=== PATIENT | female | born 1950 | race Caucasian/White ===

== ENCOUNTER 2018-03-08 06:42 | Inpatient (IN) | payer MEDICARE ==
--- NOTE | 2018-02-28 14:32 | HP ---
Amended report to enter cosigning physician. HISTORY AND PHYSICAL: DATE OF ADMISSION/SURGERY: 03/08/18 DATE OF OFFICE VISIT: 02/28/18 SURGEON: Chloe Flood MD* (dictated by NIRU Solitario). PROCEDURE: Left total hip arthroplasty. CHIEF COMPLAINT: Left hip pain. HISTORY OF PRESENT ILLNESS: Ms. Fish is a 67-year-old female with complaints of left hip pain, secondary to advanced osteoarthritis. She has failed conservative management and elected to proceed with a left total hip arthroplasty, which is scheduled for 03/08/[address] Flood. PAST MEDICAL HISTORY: Denies. PAST SURGICAL HISTORY: Hysterectomy, bladder sling, and . CURRENT MEDICATIONS: 1. Vitamin C. 2. Atorvastatin calcium 20 mg q.h.s. 3. Tylenol as needed. 4. Glucosamine and chondroitin daily. ALLERGIES: None. FAMILY HISTORY: Coronary artery disease, hypertension, breast cancer, diabetes , and stroke. SOCIAL HISTORY: She is a 67-year-old female. She lives with her . She smokes 1 cigarette a day. She denies use of drugs or alcohol. REVIEW OF SYSTEMS: A complete 14-point review of systems is reviewed with the patient and it was all negative or noncontributory. She denies any history of DVT, PE, hepatitis, HIV, or anesthesia problems. PHYSICAL EXAMINATION GENERAL: She is well developed, well nourished, in no acute distress. VITAL SIGNS: She stands 5 feet 2 inches tall, weighs 178 pounds, blood pressure is 190/106, her heart rate is . HEENT: Normocephalic, atraumatic. NECK: Supple. No palpable lymph nodes. PULMONARY: Lungs are clear to auscultation bilaterally. CARDIO: Regular rate and rhythm. Strong S1, S2. ABDOMEN: Soft, nontender, nondistended. NEUROLOGIC: She is alert and oriented x3. Cranial nerves II through XII are intact. MUSCULOSKELETAL: Left lower extremity: The skin is intact. There are no open wounds or abrasions. She has decreased internal and external rotation of her left hip. She walks with an antalgic-type gait favoring her left hip. She has 2+ dorsalis pedis pulses, intact sensation. Her lower extremity muscle group strengths were intact at 5/5. ASSESSMENT AND PLAN: Ms. Fish is a 67-year-old female with left hip pain secondary to advanced osteoarthritis. She has failed conservative management and elected to proceed with the left total hip arthroplasty, which is scheduled for 03/08/[address] Flood discussed the risks and benefits of surgery at today's visit and all of her questions were answered. She will follow up with Dr. Flood in 2 weeks after the surgery. NIRU SOLITARIO [id number]/CPS #: [id number] MTDD
[~2018-03-08 06:42] MED LIST: Buffered Lidocaine 0.9% SYRIN* 5 ML/SYR SYRINGE INTRADERM ONE; Dexamethasone IV* 4 MG/ML 1 ML (4 MG) IV SLOW PU ONE; Famotidine TAB* 20 MG PO ONE
[2018-03-08] MEDS ORDERED: ceFAZolin 2 GM PREMIX (*) 2 GM/50 ML BAG IVPB ONE (06:58)
[2018-03-08] MEDS ORDERED: Dexamethasone IV* 4 MG/ML 5 ML VIAL (20 MG) ONE (06:58)
[2018-03-08] MEDS ORDERED: Famotidine TAB* 20 MG ONE (06:58)
[2018-03-08] MEDS ORDERED: Dexamethasone IV* 4 MG/ML 1 ML (4 MG) ONE (06:59)
[2018-03-08] MEDS ORDERED: Midazolam* 1 MG/ML 5 ML VIAL (5 MG) ONE (08:40)
[2018-03-08] MEDS ORDERED: Scopolamine 1.5 mg* PATCH ONE (08:45)
[2018-03-08] MEDS ORDERED: Morphine PF AMP (0.5MG/ML)* 5 MG/10 ML AMP ONE (08:46)
[2018-03-08] MEDS ORDERED: Propofol* 10 MG/ML 20 ML BTL IV PUSH ONE ×2 (08:54→11:20)
[2018-03-08] MEDS ORDERED: Phenylephrine INJ* 10 MG/ML 1 ML VIAL (10 MG) ONE (09:32)
[2018-03-08] MEDS ORDERED: Bupivacaine 0.5% PF 10 ML VIAL INJ ONE (10:17)
[2018-03-08] MEDS ORDERED: Ondansetron INJ* 2 MG/ML VIAL ONE (10:18)
[2018-03-08] MEDS ORDERED: Magnesium Hydroxide LIQ* 30 ML UDC PO PRN (11:19)
[2018-03-08] MEDS ORDERED: diPHENhydraMINE IV* 50 MG/ML 1 ml VIAL (BENADRYL) IV PRN (11:19)
[2018-03-08] MEDS ORDERED: Cyclobenzaprine TAB* 10 MG PO PRN (11:19)
[2018-03-08] MEDS ORDERED: Morphine VIAL* 4 MG/ML VIAL (1 ml vial) IV PRN (11:19)
[2018-03-08] MEDS ORDERED: Bisacodyl SUPP* 10 MG SUPP PR PRN (11:19)
[2018-03-08] MEDS ORDERED: oxyCODONE TAB* 5 MG TAB PO PRN (11:19)
[2018-03-08] MEDS ORDERED: Ketorolac INJ* 30 MG/ML 1 ML VIAL IV PRN (11:28)
[2018-03-08] MEDS ORDERED: Naloxone* 0.4 MG/ML 1 ML VIAL IV PRN ×2 (11:28→11:38)
[2018-03-08] MEDS ORDERED: DiMENhydriNATE IV* 50 MG/ML VIAL IV PUSH PRN (11:28)
[2018-03-08] MEDS ORDERED: oxyCODONE/Acetamin 5/325 MG* TAB PO PRN (11:38)
[2018-03-08] MEDS ORDERED: Ondansetron INJ* 2 MG/ML VIAL IV PRN (11:38)
[2018-03-08] MEDS ORDERED: Ketorolac INJ* 30 MG/ML 1 ML VIAL ONE (11:46)
--- NOTE | 2018-03-08 11:48 | RAD ---
INDICATION: LEFT hip replacement COMPARISON: February 12, 2018 TECHNIQUE: Crosstable RIGHT lateral decubitus AP lower pelvis and proximal femurs 0951 hours FINDINGS: LEFT acetabular component in place. LEFT femur test fit reamer device in place. No fracture evident. IMPRESSION: Interoperative control films.
--- NOTE | 2018-03-08 13:51 | CONSULT ---
Subjective Date of Service: 03/08/18 Interval History: 67 yo female PMH HLD, left hip OA, family Hx of CAD, current 1 cigarette smoker a day for last 40 years who is now s/o left total hip replacement. In PACU postoperatively there was concern for irregular HR so medicine service consulted. She regularly exercises and climbs stairs without exertional dyspnea. She denies chest pain, shortness of breath, chest pressure, palpitations. Family History: Findings - father with CVA, MGF IL age 61, PGF [place] age 47, Paternal Uncle [place] age 49 Social History: Findings - 1 cigarette day smoker for 50 Past Medical History: Findings - HLD, smoker, OA Review of Systems - Measurements Intake and Output: Intake and Output Last 24 Hours 03/06/18 03/07/18 03/08/18 03/09/18 06:59 06:59 06:59 06:59 Intake Total 1750 Output Total 550 Balance 1200 Weight 51.256 kg Intake: IV Fluids 1750 LR 1700 NS 50ML, Cefazolin 2G 50 Output: Ram 550 - Review of Systems Constitutional Symptoms: Negative: Fever Pulmonary: Positive: Normal Cardiology: Positive: Normal Negative: Chest Pain, Shortness of Breath, Palpitations Gastroenterology: Positive: Normal Musculoskeletal: Positive: Joint Pain Neurology: Positive: Normal Objective Active Medications: Acetaminophen (Tylenol Tab*) 650 mg PO Q4H PRN PRN Reason: PAIN OR TEMPERATURE Bisacodyl (Dulcolax Supp*) 10 mg IN DAILY PRN PRN Reason: constipation Cyclobenzaprine HCl (Flexeril Tab*) 5 mg PO TID PRN PRN Reason: SPASMS Dexamethasone Sodium Phosphate (Decadron Iv*) 8 mg IV SLOW PU ONCE ONE Stop: 03/08/18 06:01 Last Admin: 03/08/18 07:28 Dose: 8 mg Dimenhydrinate (Dramamine Iv*) 25 mg IV PUSH ONCE PRN PRN Reason: NAUSEA/VOMITING Diphenhydramine HCl (Benadryl Iv*) 25 mg IV Q6H PRN PRN Reason: itching Docusate Sodium (Colace Cap*) 100 mg PO BID KERA Enoxaparin Sodium (Lovenox(*)) 30 mg SUBCUT Q24H KERA Famotidine (Pepcid Tab*) 20 mg PO ONCE ONE Stop: 03/08/18 06:01 Last Admin: 03/08/18 07:28 Dose: 20 mg Lactated Ringer's (Lactated Ringers 1000 Ml Bag*) 1,000 mls @ 125 mls/hr IV PER RATE [facility] Last Admin: 03/08/18 07:28 Dose: 125 mls/hr Cefazolin Sodium/Dextrose (Kefzol 1 Gm In Dextrose Duplex (*)) 1 gm in 50 mls @ 200 mls/hr IVPB Q8H [facility] Stop: 03/09/18 04:14 Lactated Ringer's (Lactated Ringers 1000 Ml Bag*) 1,000 mls @ 100 mls/hr IV PER [facility] Ketorolac Tromethamine (Toradol Inj*) 15 mg IV Q6H PRN PRN Reason: PAIN Stop: 03/09/18 11:40 Lidocaine/Sodium Bicarbonate (Buffered Lidocaine 0.9% Syrin*) 0.2 ml INTRADERM ONCE ONE Stop: 03/07/18 15:03 Magnesium Hydroxide (Milk Of Magnesia Liq*) 30 ml PO BID [facility] Magnesium Hydroxide (Milk Of Magnesia Liq*) 30 ml PO Q6H PRN PRN Reason: constipation Morphine Sulfate (Morphine Inj (Syringe)*) 2 mg IV Q2H PRN PRN Reason: PAIN Multivitamins (Theragran Tab*) 1 tab PO DAILY [facility] Naloxone HCl (Narcan*) 0.08 mg IV Q2M PRN PRN Reason: severe induced resp depression Stop: 03/09/18 11:27 Naloxone HCl (Narcan*) 0.08 mg IV Q2M PRN PRN Reason: severe induced resp depression Stop: 03/09/18 11:37 Ondansetron HCl (Zofran Tab*) 4 mg PO Q6H PRN PRN Reason: NAUSEA Ondansetron HCl (Zofran Inj*) 4 mg IV Q6H PRN PRN Reason: Nausea/Vomiting Oxycodone HCl (Roxycodone Tab*) 10 mg PO Q4H PRN PRN Reason: PAIN - SEVERE Oxycodone/Acetaminophen (Percocet 5/325 Tab*) 2 tab PO Q4H PRN PRN Reason: PAIN Oxycodone/Acetaminophen (Percocet 5/325 Tab*) 1 tab PO Q4H PRN PRN Reason: PAIN - MODERATE Oxycodone/Acetaminophen (Percocet 5/325 Tab*) 1 tab PO Q4H PRN PRN Reason: Moderate Pain Warfarin Sodium (Coumadin Tab(*)) 6 mg PO ONCE@1700 ONE PRN Reason: Protocol Stop: 03/08/18 17:01 Vital Signs - 8 hr 03/08/18 03/08/18 03/08/18 07:10 07:22 11:53 Temperature 98.2 F Pulse Rate 84 82 77 Respiratory 18 Rate Blood Pressure 155/92 155/92 (mmHg) O2 Sat by Pulse 95 96 94 Oximetry 03/08/18 03/08/18 03/08/18 11:54 11:55 12:00 Temperature 97.5 F Pulse Rate 84 74 81 Respiratory 11 19 Rate Blood Pressure 99/61 109/51 100/52 (mmHg) O2 Sat by Pulse 93 90 90 Oximetry 03/08/18 03/08/18 03/08/18 12:05 12:10 12:13 Temperature Pulse Rate 74 65 60 Respiratory 15 16 18 Rate Blood Pressure 100/54 80/44 96/39 (mmHg) O2 Sat by Pulse 96 93 98 Oximetry 03/08/18 03/08/18 03/08/18 12:15 12:30 12:45 Temperature Pulse Rate 78 61 49 Respiratory 14 13 20 Rate Blood Pressure 99/56 102/47 111/48 (mmHg) O2 Sat by Pulse 95 97 98 Oximetry 03/08/18 03/08/18 03/08/18 13:00 13:15 13:30 Temperature 97.5 F Pulse Rate 59 52 57 Respiratory 17 15 13 Rate Blood Pressure 102/51 94/46 98/48 (mmHg) O2 Sat by Pulse 96 96 94 Oximetry Oxygen Devices in Use Now: Nasal Cannula Appearance: NAD, lying in PACU bed. Ears/Nose/Mouth/Throat: NL Teeth, Lips, Gums Neck: NL Appearance and Movements; NL JVP Respiratory: Symmetrical Chest Expansion and Respiratory Effort, Clear to Auscultation - anteriorly Cardiovascular: NL Sounds; No Murmurs; No JVD, RRR Abdominal: NL Sounds; No Tenderness; No Distention, No Hepatosplenomegaly Extremities: No Edema, - - left hip bandage Skin: No Rash or Ulcers Neurological: Alert and Oriented x 3, NL Sensation Nutrition: Taking PO's Assessment/Plan - Billing Plan By Medical Problem: 1. Consulted for concern for irregular HR. Telemetry examined patient is in normal sinus rhythm with occasional sinus bradycardia to 50s. Tele print out of concern also normal sinus rhythm with some modest R-R interval variabilty. This can be caused by variations in vagal tone (for instance associated with post operative pain or discomfort). This is not an arrythmia. Pt can be transferred to [facility]. Good functional exercise tolerance. 2. OA s/p left total hip. pain control per ortho. 3. recommend smoking cessation. VTE PPX: per orthopedics, likely lovenox Diet: heart healthy Code Status: FULL Admission Status and Rationale: post op left total hip
[2018-03-08] MEDS ORDERED: Heparin VIAL(*) 5000 UNITS/ML VIAL (FIVE THOUSAND) SUBCUT SCH (14:00)
--- NOTE | 2018-03-08 14:49 | RAD ---
Indication: Post LEFT total hip arthroplasty. Comparison: February 12, 2018 Technique: Portable low AP pelvis, AP and crosstable lateral views LEFT hip. Report: LEFT total hip prosthesis in place with normal alignment. No periprosthetic fracture evident. Overlying soft tissue edema and subcutaneous emphysema. The contralateral hip is remarkable for osteoarthritis with moderately severe axial joint space narrowing. IMPRESSION: Unremarkable immediate postop appearance following LEFT total hip replacement.
[2018-03-08] MEDS: ceFAZolin 1 GM in Dextrose (*) 1 GM/50 ML BAG IVPB SCH (16:52)
[2018-03-08] MEDS ORDERED: Warfarin TAB(*) 6 MG PO ONE (17:00)
[2018-03-08] MEDS: Ketorolac INJ* 30 MG/ML 1 ML VIAL IV PRN (22:06)
[2018-03-08] MEDS: Docusate CAP* 100 MG PO SCH (22:08)
[2018-03-08] MEDS: Magnesium Hydroxide LIQ* 30 ML UDC PO SCH (22:08)
[2018-03-09] MEDS: ceFAZolin 1 GM in Dextrose (*) 1 GM/50 ML BAG IVPB SCH ×2 (01:05→09:16)
[2018-03-09] MEDS ORDERED: Ondansetron TAB* 4 MG PO PRN (01:13)
[2018-03-09] MEDS ORDERED: oxyCODONE/Acetamin 5/325 MG* TAB PO PRN ×2 (01:13)
[2018-03-09] MEDS: Ketorolac INJ* 30 MG/ML 1 ML VIAL IV PRN (04:58)
[2018-03-09 06:17] LABS: Hematocrit 26 % (35-47); Hemoglobin 8.7 g/dl (12.0-16.0); Mean Platelet Volume 8.5 um3 (7.4-10.4); Platelet Count 113 10^3/ul (150-450)
[2018-03-09 06:21] LABS: INR 1.06 (0.77-1.02)
[2018-03-09 06:35] LABS: EGFR Non-African American 110.9 (>60)
--- NOTE | 2018-03-09 08:30 | PN ---
Progress Note - Progress Note Date of Service: 03/09/18 SOAP: Subjective: 67 y/o female s/p L JHOAN by Dr. Flood 03/08. VSS, afebrile overnight. Patient feeling well, pain controlled with tylenol. No complaints, questions, in good spirits. LIkley D/C home monday. Objective: General- Well appearing, NAD, AO Sitting in chair comfortably MSK- LLE- DF/PF = b/l, PT 2+, negative homans sign, no induration, drainage noted. LLE non-tender to palpation. Vital Signs Temp 98.4 F 03/09/18 04:39 Pulse 82 03/09/18 04:39 Resp 18 03/09/18 06:39 BP 118/45 03/09/18 04:39 Pulse Ox 96 03/09/18 04:39 Intake & Output 03/08/18 03/09/18 03/09/18 18:59 06:59 18:59 Intake Total 1750 1960 Output Total 550 1875 Balance 1200 85 Weight 51.256 kg Intake: IV Fluids 1750 980 LR 1700 980 NS 50ML, Cefazolin 2G 50 IVPB 105 LR 105 Oral 875 Output: Ram 550 1875 Assessment: Stable 67 y/o female s/p L JHOAN by Dr. Flood 03/08 Plan: - DVT prophylaxis- lovenox, coumadin 5 mg tonight, INR subtheraputic - Continue PT/ OT - Follow up with Dr. Flood within 10-14 days - H&H - Stable - post-op IV ABX - Completed - LIkely D/C monday as patient will be living alone until that time. Laboratory Results - last 24 hr 03/09/18 03/09/18 03/09/18 06:01 06:01 06:01 Hgb 8.7 L Hct 26 L Plt Count 113 L MPV 8.5 INR (Anticoag Therapy) 1.06 H Sodium 139 Potassium 4.1 Chloride 107 Carbon Dioxide 30 Anion Gap 2 BUN 17 Creatinine 0.55 Est GFR ( Amer) 142.7 Est GFR (Non-Af Amer) 110.9 BUN/Creatinine Ratio 30.9 H Glucose 111 H Calcium 8.5 L
[2018-03-09] MEDS: Acetaminophen TAB* 325 MG PO PRN ×4 (09:15→23:26)
[2018-03-09] MEDS: Vitamin THERAPEUTIC TAB PO SCH (09:15)
[2018-03-09] MEDS: Docusate CAP* 100 MG PO SCH ×2 (09:15→21:02)
[2018-03-09] MEDS: Magnesium Hydroxide LIQ* 30 ML UDC PO SCH ×2 (09:16→21:02)
--- NOTE | 2018-03-09 11:58 | OP ---
OPERATIVE REPORT: DATE OF OPERATION: 03/08/18 DATE OF : 54 SURGEON: Chloe Flood MD INSTITUTION DIRECTOR: NIRU Bardales Ms. Khan did help throughout the procedure with preparation of the leg, wound retraction, manipulation of the hip, and wound closure. ANESTHESIOLOGIST: Mauro Fajardo MD ANESTHESIA: Spinal. PRE-OP DIAGNOSIS: Severe end-stage degenerative osteoarthritis of the left hip joint. POST-OP DIAGNOSES: Severe end-stage degenerative osteoarthritis of the left hip joint with extensive subchondral cyst formation in the acetabulum and significant osteopenia. OPERATIVE PROCEDURE: Left total hip arthroplasty with acetabular cyst bone grafting with femoral head autograft. INDICATIONS: Ms. Fish is a 67-year-old female, who has had years of left hip pain. She failed conservative treatment with antiinflammatories, home exercise program, and ambulatory assistive devices, and homeopathic therapy. Radiographs showed extreme deformation of the femoral head with obliteration of the joint space and subchondral cyst formation. She elected to have left total hip arthroplasty due to continued pain and decreased quality of life. Informed consent was obtained from the patient. She understood the risks of surgery included, but were not limited to, bleeding, infection, damage to nearby structures, continued pain, need for further surgery, intraoperative fracture, nerve palsy, hardware failure or loosening, dislocation, leg length discrepancy , stroke, heart attack, blood clot, and . She wished to proceed. HARDWARE USED: This is a Tritanium cluster hole shell 50D, a single 20-mm cancellous bone screw was used. For the polyethylene, a Trident X3 10-degree polyethylene insert, 32D. For the stem, an Accolade TMZF size 3 with a 132- degree neck. For the head, a Biolox delta ceramic V40 femoral head 32 -4. COMPLICATIONS: None. ESTIMATED BLOOD LOSS: 300 cc. SPECIMEN: Femoral head and acetabular reaming sent to Pathology. INTRAOPERATIVE FINDINGS: Intraoperatively, the patient had severe end-stage degeneration of the hip joint with bony deformation. Femoral head was slightly deformed with bone loss. Acetabulum had extensive subchondral cyst formation and osteopenia due to chronic wear. DESCRIPTION OF PROCEDURE: Ms. Fish was identified in the preanesthesia unit. Her left lower extremity was marked as the correct operative side. Informed consent was signed and placed in the chart. The patient was taken to the operating room and placed under spinal anesthesia. A Ram catheter was placed. The patient was placed in the right lateral decubitus position on the peg board. All bony prominences were well padded. The left lower extremity was prepped and draped in the usual sterile fashion. Preop time-out was made to correctly identify the patient's side and site. Appropriate perioperative antibiotics were given within 1 hour of incision. A 12-cm posterior hip incision was made with a 10 blade, carried down to the lateral fascial layer. The lateral fascial layer was then incised in line with the skin incision. Charnley retractor was placed. The piriformis and conjoint tendons were identified and elevated off the posterolateral femur using electrocautery. These were tagged with #5 Ethibonds. Next, the capsule was opened using electrocautery and also tagged with #5 Ethibond. The hip was carefully dislocated. Femoral head had extreme deformation. Lesser troch to center of the femoral head was estimated at 55 mm. Oscillating saw was used to make the appropriate femoral neck cut. The head was removed. Autograft was removed from the femoral head. The femur was carefully retracted anteriorly. After appropriate placement of retractors, the acetabulum was easily visualized. Any remaining labrum was carefully removed from the acetabular rim. The acetabulum was sequentially reamed up to a size 49. Bleeding subchondral bone bed was obtained. There was a marked amount of subchondral cyst formation and a severe lack of bone stalk. This bone was osteoporotic and full of subchondral cysts from chronic wear. Femoral head autograft was used to pack the subchondral cyst region in the superior to anterior weightbearing the cystic material was removed. A 49 trial was deemed to have satisfactory stability. Final implant used was a Tritanium 50D cluster hole shell. This was impacted into the acetabulum without difficulty. Stability was satisfactory. With the cluster holes, only one screw was able to be obtained in the superior posterior quadrant. This was length 20-mm screw. Satisfactory purchase was obtained. The liner chosen was a Trident X3 10-degree polyethylene insert 32D. This was impacted into the acetabulum without difficulty. Stability of the liner was checked and rechecked and noted to be stable. Attention was turned back to the preparation of the proximal femur. A canal finder was used to enter the proximal femur. Femur was sequentially broached up to a size 3. A 132-neck trial was placed with a 32 -4 head trial. Lesser troch to center of the femoral head measured 56 mm. The hip was reduced and taken through range of motion. The hip was stable in all positions. Satisfactory soft tissue tension and appropriate leg lengths. The hip was carefully dislocated. All trials were removed. The final implant chosen was an Accolade TMZF size 3 with a 132-degree neck. This was impacted into the femoral canal without difficulty. Satisfactory stability and anteversion were obtained. A 32 -4 ceramic V40 Biolox delta femoral head was chosen. This was impacted on to the femoral neck. The hip was reduced and taken through a range of motion. The hip was stable in all positions. The hip was copiously irrigated with sterile saline. Previously tagged capsule and tendons were reapproximated to the posterolateral femur through 2 trochanteric drill holes. The lateral fascial layer was closed using interrupted #1 Vicryls. The rest of the incision was closed in a layered fashion using 0 and 2-0 Vicryls. The skin was closed using running 3-0 Monocryl and Dermabond. Sterile Adaptic, 4x4s, paper tape were used to cover the incision. The patient's anesthesia was reversed without difficulty. She was taken to the PACU in stable condition. Due to the patient's severe osteopenia and acetabular bone loss, I will make her 25% toe-touch weightbearing for the next month to 6 weeks. She will have strict posterior hip precautions and weightbearing as tolerated with DVT prophylaxis will be Coumadin with Lovenox bridge. [id number]/CPS #: [id number]
[2018-03-09] MEDS: Enoxaparin(*) 30 MG/0.3 ML SYR SUBCUT SCH (12:27)
[2018-03-09] MEDS ORDERED: NS 0.9% 500 ML* 500 ML IV PRN (13:51)
[2018-03-09] MEDS ORDERED: Warfarin TAB(*) 5 MG PO ONE (17:00)
[2018-03-09] MEDS: Atorvastatin* 20 MG TAB PO SCH (21:02)
[2018-03-10 05:47] LABS: Hematocrit 28 % (35-47); Hemoglobin 9.3 g/dl (12.0-16.0); Mean Platelet Volume 8.9 um3 (7.4-10.4); Platelet Count 131 10^3/ul (150-450)
[2018-03-10] MEDS: Acetaminophen TAB* 325 MG PO PRN ×5 (06:07→23:58)
[2018-03-10 06:32] LABS: INR 2.42 (0.77-1.02)
[2018-03-10] MEDS: Vitamin THERAPEUTIC TAB PO SCH (08:37)
[2018-03-10] MEDS: Magnesium Hydroxide LIQ* 30 ML UDC PO SCH ×2 (08:37→21:58)
[2018-03-10] MEDS: Docusate CAP* 100 MG PO SCH ×2 (08:37→21:58)
--- NOTE | 2018-03-10 11:42 | PN ---
Progress Note - Progress Note Date of Service: 03/10/18 SOAP: Subjective: 67 y/o female s/p L JHOAN by Dr. Flood 03/08. Some low blood pressures yesterday, patient asymptomatic at time. Resolved overnight. Afebrile overnight. Patient feeling well, pain controlled with tylenol. No complaints, questions, in good spirits. Likely D/C home Monday as when family in town to care for her. Objective: Vital Signs Temp 97.9 F 03/10/18 11:16 Pulse 77 03/10/18 11:16 Resp 14 03/10/18 11:16 BP 106/46 03/10/18 11:16 Pulse Ox 98 03/10/18 11:16 Intake & Output 03/09/18 03/10/18 03/10/18 18:59 06:59 18:59 Intake Total 1680 200 500 Output Total 1400 2800 950 Balance 280 -2600 -450 Intake: IV Fluids 1080 ABX - CEFAZOLIN 100 LR 980 Oral 600 200 500 Output: Urine 1400 2800 950 Other: # Bowel Movements 1 Estimated Stool Amount Large Laboratory Results - last 24 hr 03/10/18 03/10/18 05:21 05:21 Hgb 9.3 L Hct 28 L Plt Count 131 L MPV 8.9 INR (Anticoag Therapy) 2.42 H General- Well appearing, NAD, AO Sitting in chair comfortably, eating breakfast. MSK- LLE- Dressing intact clean, dry. DF/PF = b/l, PT 2+, calf soft. Sensation intact to light touch distally. Assessment: Stable 67 y/o female s/p L JHOAN by Dr. Flood 03/08 Plan: - DVT prophylaxis- lovenox, coumadin. Will hold coumadin tonight as INR 2.42. Recheck tomorrow. - Continue PT/ OT - Follow up with Dr. Flood within 10-14 days - H&H - Stable - post-op IV ABX - Completed - Likely D/C monday as patient will be living alone until that time.
[2018-03-10] MEDS: Enoxaparin(*) 30 MG/0.3 ML SYR SUBCUT SCH (13:42)
[2018-03-10] MEDS: Atorvastatin* 20 MG TAB PO SCH (21:57)
[2018-03-11] MEDS: Acetaminophen TAB* 325 MG PO PRN ×2 (04:12→08:07)
[2018-03-11 06:01] LABS: Hematocrit 29 % (35-47); Hemoglobin 9.9 g/dl (12.0-16.0); Mean Platelet Volume 8.8 um3 (7.4-10.4); Platelet Count 148 10^3/ul (150-450)
[2018-03-11 06:15] LABS: INR 1.93 (0.77-1.02)
[2018-03-11] MEDS: Magnesium Hydroxide LIQ* 30 ML UDC PO SCH (08:03)
[2018-03-11] MEDS: Vitamin THERAPEUTIC TAB PO SCH (08:07)
[2018-03-11] MEDS: Docusate CAP* 100 MG PO SCH (08:09)
[2018-03-11] MEDS ORDERED: Scopolamine PATCH Remove* 1 NOTE MISC PATCH OFF ONE (09:00)
[2018-03-11 11:34] VITALS: BP 123/67
--- NOTE | 2018-03-11 11:42 | PN ---
Progress Note - Progress Note Date of Service: 03/11/18 SOAP: Subjective: 67 y/o female s/p L JHOAN by Dr. Flood 03/08. Some low blood pressures yesterday, patient asymptomatic at time. Resolved overnight. Afebrile overnight. Patient feeling well, pain controlled with tylenol. No complaints, questions, in good spirits. Anxious for discharge, planed for this morning. Objective: Vital Signs Temp 97.9 F 03/11/18 08:13 Pulse 89 03/11/18 08:13 Resp 16 03/11/18 08:13 BP 123/67 03/11/18 08:13 Pulse Ox 98 03/11/18 08:13 Intake & Output 03/10/18 03/11/18 03/11/18 18:59 06:59 18:59 Intake Total 1100 2290 Output Total 1100 1400 300 Balance 0 890 -300 Intake: Oral 1100 2290 Output: Urine 1100 1400 300 Other: Estimated Void Medium # Bowel Movements 1 0 Estimated Stool Amount Medium # Voids 1 1 Laboratory Results - last 24 hr 03/11/18 03/11/18 05:31 05:31 Hgb 9.9 L Hct 29 L Plt Count 148 L MPV 8.8 INR (Anticoag Therapy) 1.93 H General- Well appearing, NAD, AO Sitting in chair comfortably, eating breakfast. MSK- LLE- Incision clean, dry, no erythema, warmth, drainage. DF/PF = b/l, PT 2+ , calf soft. Sensation intact to light touch distally. Assessment: Stable 67 y/o female s/p L JHOAN by Dr. Flood 03/08 Plan: - DVT prophylaxis- D/C on coumadin. - Follow up with Dr. Flood within 10-14 days - post-op IV ABX - Completed - D/C today.
--- NOTE | 2018-03-14 20:47 | DS ---
DISCHARGE SUMMARY: DATE OF ADMISSION: 03/08/18 DATE OF DISCHARGE: 03/11/18 ATTENDING PROVIDER: Dr. Flood * (DICTATED BY NIRU VARMA) CHIEF COMPLAINT: Left hip osteoarthritis. DISCHARGE DIAGNOSIS: Status post left total hip arthroplasty. PROCEDURE: Left total hip arthroplasty. CONSULTATIONS: 1. Physical therapy. 2. Occupational therapy. 3. Medicine. BRIEF HISTORY: Ms. Fish is a 67-year-old female who had advanced osteoarthritis in her left hip, who failed conservative management and elected to proceed with a left total hip arthroplasty on 03/08/[address] Flood. HOSPITAL COURSE: Ms. Fish was admitted to [facility] where she underwent a left total hip arthroplasty. Postoperatively, she had some abnormalities in her EKG and was determined by hospitalist service to be just RR variation, so she was able to recover on the short stay surgical unit. On postoperative day #1, her Ram catheter was removed and she was able to urinate on her own. She was advanced to regular diet without difficulty and pain was controlled with Tylenol after the first day and she was able to restart her home medications. Her labs and vital signs remained stable. She was able to weight bear as tolerated on the left lower extremity. She was advanced appropriately with physical therapy and occupational therapy. Her DVT prophylaxis was managed with Lovenox and Coumadin until she reached therapeutic INR. By postoperative day #3, she was orthopedically and medically stable to discharge home with services. PHYSICAL EXAM: Ms. Fish is well nourished, well developed, who is in no acute distress. She is sitting comfortably in a chair eating breakfast. She is alert and oriented x3. Her vital signs on the day of discharge were temperature of 97.9, pulse of 89, respirations 16, blood pressure 123/67, pulse ox 98%. On the left lower extremity, her incision was clean, dry with no erythema, warmth, or drainage with sutures intact. Dorsiflexion and plantar flexion were equal bilaterally. She has 2+ DP and PT pulses. Calf is soft. Sensation is grossly intact to light touch distally. LABORATORY DATA: On the day of discharge, hemoglobin of 9.9, hematocrit of 29, INR of 1.93. RADIOGRAPHS: Postoperative radiographs of the left hip show left total hip arthroplasty with satisfactory prosthetic placement. No acute bony abnormalities. DISCHARGE MEDICATIONS: 1. Acetaminophen 500 two tablets q.6 hours p.r.n. pain. 2. Ascorbic acid 500 mg daily. 3. Atorvastatin 20 mg daily. 4. Naproxen 220 three tablets p.o. b.i.d. as needed for pain. 5. Fish oil 1000 mg daily. 6. Vitamin D 5000 international units daily. 7. Coumadin 2 mg, take as directed. CONDITION ON DISCHARGE: Stable. DISCHARGE INSTRUCTIONS: Ms. Fish is a 67-year-old female who is postoperative day #3, status post left total hip arthroplasty which was uncomplicated. She is orthopedically and medically stable for discharge home with services. Her labs and vital signs were stable. She will restart her home medications. She will take 2 mg of Coumadin on Monday and we will recheck INR on Monday and list a new dosing at that time. She will have INR draws on Monday and with visiting nurse services. She will remain weightbearing as tolerated on the left lower extremity. She will have home physical therapy twice a week. She will take Tylenol for pain control. She will follow up with Dr. Flood in 10 to 14 days for incision check and suture removal. She was instructed to go immediately to the ER should she develop chest pain, shortness of breath, and should contact our office if she developed fever, increasing pain, redness or calf pain. NIRU VARMA [id number]/[facility] #: [id number] [email or web address]
--- NOTE | 2018-03-14 21:04 | DS ---
DISCHARGE SUMMARY: DATE OF ADMISSION: 03/08/18 DISCHARGE DIAGNOSES: 03/11/18 CHIEF COMPLAINT: 1. Left hip osteoarthritis. DICTATION ENDS ABRUPTLY. NIRU VARMA [id number]/[facility] #: [id number] MTDD
== END 2018-03-11 10:50 | disposition home health service (06) | DRG 470 ==
LOC: AA 06:42 → SSU 14:37
PROVIDERS: ADMIT Orthopaedic Surgery Adult Reconstructive Orthopaedic Surgery; ATTEND Orthopaedic Surgery Adult Reconstructive Orthopaedic Surgery
PROC: 0QU507Z Supplement Left Acetabulum with Autologous Tissue Substitute, Open Approach (ICD-10-PCS; 2018-03-08)
PROC: 0SRB04Z Replacement of Left Hip Joint with Ceramic on Polyethylene Synthetic Substitute, Open Approach (ICD-10-PCS; principal; 2018-03-08 09:00)
DX: M16.12 Unilateral primary osteoarthritis, left hip (principal); E78.5 Hyperlipidemia, unspecified; M85.80 Other specified disorders of bone density and structure, unspecified site; L40.9 Psoriasis, unspecified; E04.8 Other specified nontoxic goiter; E03.9 Hypothyroidism, unspecified; F17.210 Nicotine dependence, cigarettes, uncomplicated; M85.652 Other cyst of bone, left thigh; Z83.3 Family history of diabetes mellitus; Z82.49 Family history of ischemic heart disease and other diseases of the circulatory system; Z80.3 Family history of malignant neoplasm of breast; Z82.3 Family history of stroke; Z91.048 Other nonmedicinal substance allergy status; Z90.710 Acquired absence of both cervix and uterus; R00.1 Bradycardia, unspecified; R03.1 Nonspecific low blood-pressure reading
CPT/HCPCS: 36415; 80048; 85014; 85018; 85049; 85610; 88304; 88311; A9270-GY; C1713; C1776; G8978-GP-CK; G8978-GP-CL; G8979-GP-CI; G8979-GP-CL; G8980-GP-CL; G8987-GO-CI; G8988-GO-CI; J0690; J1100; J1650; J1885; J2250; J2405; J2704

== ENCOUNTER 2021-08-12 06:03 | Observation (INO) ==
[~2021-08-12 06:03] MED LIST changes: -Buffered Lidocaine 0.9% SYRIN* 5 ML/SYR SYRINGE INTRADERM ONE; +Buffered Lidocaine 1% SYRIN 1 ml INTRADERM ONE; -Dexamethasone IV* 4 MG/ML 1 ML (4 MG) IV SLOW PU ONE; -Famotidine TAB* 20 MG PO ONE; +Lactated Ringers 1000 ml BAG 1,000 ML IV SCH
[2021-08-12] MEDS ORDERED: ceFAZolin 2 GM in NS PREMIX 2 GM/100 ML BAG IVPB ONE (06:19)
[2021-08-12] MEDS ORDERED: ROPIVACAINE 5 MG/ML 30 ML BTL (0.5%) ONE (07:04)
[2021-08-12] MEDS ORDERED: Midazolam 2 mg/2 ml VIAL 1 mg/ml 2 ml VIAL (2 mg) ONE (07:15)
[2021-08-12] MEDS ORDERED: Magnesium Hydroxide LIQ 30 ML UDC PO PRN (07:56)
[2021-08-12] MEDS ORDERED: Lactulose 30 ml UDC PO PRN (07:56)
[2021-08-12] MEDS ORDERED: Ondansetron 4 mg VIAL 2 MG/ML 2 ml VIAL IV PRN (07:56)
[2021-08-12] MEDS ORDERED: diPHENhydraMINE IV 50 MG/ML 1 ml VIAL (BENADRYL) IV PRN (07:56)
[2021-08-12] MEDS ORDERED: Ondansetron ODT 4 mg TAB 4 MG TAB PO PRN (07:56)
[2021-08-12] MEDS ORDERED: diPHENhydraMINE 25 mg TAB PO PRN (07:56)
[2021-08-12] MEDS ORDERED: Lactated Ringers 1000 ml BAG 1,000 ML IV SCH (08:00)
[2021-08-12] MEDS ORDERED: Propofol 10 MG/ML 20 ML BTL ONE (08:01)
[2021-08-12] MEDS ORDERED: Ondansetron 4 mg VIAL 2 MG/ML 2 ml VIAL ONE (08:14)
[2021-08-12] MEDS ORDERED: HYDROcodone/ACETAMIN 5/325 mg TAB PO PRN (08:21)
[2021-08-12] MEDS ORDERED: Phenylephrine 40 mcg/mL 10mL (400mcg) SYRINGE ONE ×2 (08:24)
[2021-08-12] MEDS: Magnesium Hydroxide LIQ 30 ML UDC PO SCH ×2 (10:56→20:22)
[2021-08-12] MEDS: Vitamin THERAPEUTIC TAB PO SCH (10:56)
[2021-08-12] MEDS: ceFAZolin 1 GM ADVAN 1 GM in NS 0.9% 50 ML 50 ML IVPB SCH (16:10)
[2021-08-13] MEDS: ceFAZolin 1 GM ADVAN 1 GM in NS 0.9% 50 ML 50 ML IVPB SCH ×2 (00:13→07:45)
[2021-08-13 06:59] LABS: Hematocrit 36 % (35-47); Hemoglobin 12.3 g/dL (12.0-16.0); Mean Platelet Volume 9.5 fL (7.4-10.4); Platelet Count 136 10^3/uL (150-450)
[2021-08-13 07:11] LABS: Calcium 8.7 mg/dL (8.6-10.3); Potassium 3.6 mmol/L (3.5-5.0)
[2021-08-13] MEDS: Vitamin THERAPEUTIC TAB PO SCH (07:46)
[2021-08-13] MEDS: Magnesium Hydroxide LIQ 30 ML UDC PO SCH (07:46)
[2021-08-13 07:47] VITALS: BP 102/58
== END 2021-08-13 11:30 | disposition home or self-care (01) ==
LOC: SSU 06:03 → OR 06:03
PROVIDERS: ADMIT Orthopaedic Surgery Adult Reconstructive Orthopaedic Surgery; ATTEND Orthopaedic Surgery Adult Reconstructive Orthopaedic Surgery